=== PATIENT | male | born 1965 | race Caucasian/White ===

== ENCOUNTER 2016-06-13 05:02 | Day surgery (SDC) | payer OTHER ==
[2016-06-11 18:32] LABS: BASOPHILS 0.2 %; BASOPHILS ABSOLUTE 0.04 10/3/uL (0.0-0.16); EOSINOPHILS 1.9 %; EOSINOPHILS ABSOLUTE 0.33 10/3/uL (0.0-0.53); HEMATOCRIT 44.9 % (40.0-51.0); HEMOGLOBIN 16.1 g/dL (13.6-17.8); IMMATURE GRANULOCYTES 0.5 %; IMMATURE GRANULOCYTES ABSOLUTE 0.08 10/3/uL (0.0-0.11); LYMPHOCYTES 22.7 %; LYMPHOCYTES ABSOLUTE 4.01 10/3/uL (0.67-4.30); MANUAL DIFF NO %; MEAN CORPUS HGB CONC 35.9 g/dL (32.0-36.0); MEAN PLATELET VOLUME 10.8 fL (9.2-13.0); MONOCYTES 8.4 %; MONOCYTES ABSOLUTE 1.48 10/3/uL (0.21-1.20); NEUTROPHILS 66.3 %; NEUTROPHILS ABSOLUTE 11.73 10/3/uL (2.02-8.40); PLATELET COUNT 217 10/3/uL (150-400); RBC DISTRIBUTION WIDTH 12.1 % (12.0-16.0); RED CELL COUNT 4.88 10/6/uL (4.7-6.1); WHITE BLOOD CELLS 17.7 10/3/uL (4.5-10.5)
[2016-06-11 18:46] LABS: BUN (BLOOD UREA NITROGEN) 15 MG/DL (6-23); CALCIUM, SERUM 8.7 MG/DL (8.5-10.4); CHLORIDE, SERUM 103 MMOL/L (96-112); CO2 (CARBON DIOXIDE) 25 MMOL/L (24-34); CREATININE 1.18 MG/DL (0.70-1.30); GFR AFRICAN AMERICAN 83 ML/MIN (>=60); GFR NON AFRICAN AMERICAN 72 ML/MIN (>=60); GLUCOSE, SERUM 171 MG/DL (60-99); POTASSIUM, SERUM 4.1 MMOL/L (3.5-5.3); SODIUM, SERUM 137 MMOL/L (135-148)
--- NOTE | ~2016-06-13 | OP ---
Record Of Operation [facility] [address] [place]. [address] NAME: DARRIN MONTGOMERY : 65 STATUS : [facility]#: [id number] AGE: 50 ADM/REG DATE : 06/13/16 MR#: [id number] REPORT SERV DATE: 06/13/16 DICTATED BY: NITA MCINTOSH DATE: 06/13/16 REPORT STATUS : Draft TRANSCRIBED BY: MODL DATE: 06/13/16 DATE OF PROCEDURE: 06/13/2016 PREOPERATIVE DIAGNOSIS: Right ureteropelvic junction stone. POSTOPERATIVE DIAGNOSIS: Right ureteropelvic junction stone. PROCEDURE PERFORMED: Right extracorporeal shock wave lithotripsy (UPJ stone), initial treatment. SURGEON: Nita Mcintosh M.D. ANESTHESIA: Monitored anesthesia care. COMPLICATIONS: None. DRAINS: None. INDICATION: Mr. Montgomery is a 50-year-old with a symptomatic 8 mm right UPJ stone. He presents for ESWL. His white count was elevated. The urine was sterile. He has been on Levaquin for 24 hours. Repeat white count was normal. TECHNIQUE: PFA was checked. It was normal. He was brought to the Lithotripsy Suite. Monitored anesthesia care was administered. The 8 mm right UPJ stone was identified with biplanar fluoroscopy. A total of 2500 shocks were administered using the [employer]ier Compact Delta II shockwave Lithotripter. Shocks were administered at 90 shocks per minute. Maximum power level of 4. There appeared to be at least some fragmentation of the stone. He will follow up in two weeks with a KUB. Prescription for 28 Percocet was given. He will complete a total of 4 days of Levaquin. [facility] Nita Mcintosh M.D. / [id number] CC: Nita Mcintosh M.D.
[~2016-06-13 05:02] MED LIST: GLUCOPHAGE1000 MG PO; NAP375 PO; PERCOCET 10/3251 TAB PO; PRIN10 PO; TORA60 IV; TORATAB PO; ULTRAM50 PO
[2016-06-13 06:07] LABS: ASCORBIC ACID (UR NOT ORDER) NEG (NEG); BILIRUBIN, URINE NEGATIVE (NEG); KETONE, URINE NEGATIVE (NEG); LEUKOCYTE ESTERASE(NOT OR TRACE (NEG); WBC (NOT ORDERED) (RFLEX) 15 (0-5)
[2016-06-13 06:17] LABS: PFA (COL/EPI) 102 SEC (72-180)
== END 2016-06-13 09:11 | disposition home or self-care (01) ==
LOC: SDC 05:02
PROVIDERS: Urology
PROC: 0TF6XZZ Fragmentation in Right Ureter, External Approach (ICD-10-PCS; principal; 2016-06-13 07:00)
DX: N20.1 Calculus of ureter (principal); J44.9 Chronic obstructive pulmonary disease, unspecified; I10 Essential (primary) hypertension; E11.9 Type 2 diabetes mellitus without complications; F17.210 Nicotine dependence, cigarettes, uncomplicated; Z79.1 Long term (current) use of non-steroidal anti-inflammatories (NSAID); Z79.84 Long term (current) use of oral hypoglycemic drugs; Z79.891 Long term (current) use of opiate analgesic; Z79.2 Long term (current) use of antibiotics; Z79.899 Other long term (current) drug therapy; Z87.442 Personal history of urinary calculi; Z98.890 Other specified postprocedural states
CPT/HCPCS: 50590; 74000; 80048; 81001; 82962; 85025; 85048; 85576; 93005; A9270-GY; J2250; J3010